=== PATIENT | female | born 2000 | race Caucasian/White ===

== ENCOUNTER 2023-07-09 23:10 | Emergency (ER) | payer MEDICAID ==
[~2023-07-09] VITALS: Ht 157.5 cm; Wt 70.0 kg
[2023-07-09] MEDS: HYDROcodone-ACET 10/325MG TAB PO ONE (23:48)
[2023-07-10] MEDS: D5W/SOD CHL 0.45% 1,000 ML IV ONE (03:55)
[2023-07-10 04:06] LABS: Basophils # (auto) 0 10 ^3/uL (0-0.2); Basophils % (auto) 0.1 % (0.0-2.0); Eosinophils # (auto) 0 10 ^3/uL (0-0.8); Eosinophils % (auto) 0.2 % (0.0-7.0); Hematocrit 42.5 % (36.0-46.0); Hemoglobin 14.1 g/dL (12.2-16.2); Lymphocytes # (auto) 1.3 10 ^3/uL (0.4-5.4); Lymphocytes % (auto) 17.7 % (10.0-50.0); Mean Corpuscular Hemoglobin 30.3 pg (28.0-32.0); Mean Corpuscular Hgb Conc. 33.3 g/dL (32.0-36.0); Monocytes # (auto) 0.3 10 ^3/uL (0-1.3); Monocytes % (auto) 4.2 % (0.0-12.0); Neutrophils # (auto) 5.5 10 ^3/uL (1.6-8.6); Neutrophils % (auto) 77.8 % (37.0-80.0); Nucleated Red Blood Cells % 0.1 %; Red Blood Cells 4.68 10^6/uL (4.0-5.20); Red Cell Distribution Width 12.3 % (11.8-14.3); White Blood Cell 7.1 10^3/uL (4.4-10.8)
[2023-07-10 04:19] LABS: Chloride 109 mmol/L (98-107); Sodium 141 mmol/L (136-145)
[2023-07-10 04:20] LABS: Anion Gap 10 (5-15); Carbon Dioxide 22 mmol/L (20-30)
[2023-07-10 04:21] LABS: Calcium 8.5 mg/dL (8.7-10.4)
[2023-07-10 04:26] LABS: Glucose 107 mg/dL (74-106)
[2023-07-10 04:32] LABS: Partial Thromboplastin Time 27.2 SEC (24.5-34.5); Prothrombin Time 10.6 sec (9.3-11.8)
[2023-07-10 04:42] LABS: BUN/Creatinine Ratio 8.1 (10.0-20.0); Blood Urea Nitrogen < 5 mg/dL (9-23)
[2023-07-10] MEDS: MORPHINE SULFATE 4 MG/ML SYR/VIAL IV ONE ×2 (05:33→05:39)
[2023-07-10] MEDS: ONDANSETRON HCL 4 MG/2 ML VIAL IV ONE ×2 (05:34→05:39)
[2023-07-10] MEDS: KETAMINE 50mg/ML 10ml Vial (500mg/10ml) IV ONE (06:26)
[2023-07-10] MEDS: MIDAZOLAM HCL 2MG/2ML 2ml VIAL (1mg/ml) IV ONE (06:26)
[2023-07-10] MEDS ORDERED: IBUP-1456 PO (06:52)
[2023-07-10 06:57] VITALS: PULSE 64; RESP 16; O2SAT 100
[2023-07-10 07:47] VITALS: BP 123/84; TEMP 98
[2023-07-10 07:51] VITALS: PULSE 80; RESP 16; O2SAT 99
[2023-07-13] MEDS ORDERED: PREN-96 OR (15:49)
== END 2023-07-10 08:56 | disposition home or self-care (01) ==
LOC: EDBD 23:10 → ER 23:10
DX: S82.852A Displaced trimalleolar fracture of left lower leg, initial encounter for closed fracture (principal); R94.31 Abnormal electrocardiogram [ECG] [EKG]; Z79.01 Long term (current) use of anticoagulants; W18.00XA Striking against unspecified object with subsequent fall, initial encounter; Y93.89 Activity, other specified; Y92.89 Other specified places as the place of occurrence of the external cause; Y99.8 Other external cause status
CPT/HCPCS: 27816; 36415; 71045; 73600; 73610; 80048; 81025; 85025; 85610; 85730; 93005; 96361; 96374; 96375; 99152; 99285; J2250; J2270; J2405; J7030

== ENCOUNTER 2023-07-14 10:59 | Day surgery (SDC) | payer MEDICAID ==
[~2023-07-14] VITALS: Ht 157.5 cm; Wt 65.8 kg
[~2023-07-14 10:59] MED LIST: IBUP-1456 PO; PREN-96 OR
[2023-07-14] MEDS ORDERED: GLYCOPYRROLATE 0.2 MG/ML 1ML VIAL ONE (11:14)
[2023-07-14] MEDS ORDERED: PROPOFOL 10 MG/ML 20 ML IV ONE (11:14)
[2023-07-14] MEDS ORDERED: KETOROLAC TROMETH 30 MG/ML 1ML VIAL ONE (11:15)
[2023-07-14] MEDS ORDERED: DexAMETHasone SOD PHOS 10MG/1ML VIAL INJ ONE (11:15)
[2023-07-14] MEDS ORDERED: LIDOCAINE 2% (LOCAL ANESTH.) PF 5ml SDV ONE (11:15)
[2023-07-14] MEDS ORDERED: ONDANSETRON HCL 4 MG/2 ML VIAL ONE (11:15)
[2023-07-14] MEDS ORDERED: EPINEPHrine HCL 1 MG/1 ML AMP ONE (11:15)
[2023-07-14] MEDS ORDERED: KETAMINE 50mg/ML 1ml syringe ONE (11:21)
[2023-07-14] MEDS ORDERED: ceFAZolin 1GM/50ML 100 ML IV ONE (11:21)
[2023-07-14] MEDS ORDERED: fentaNYL CITRATE 100 MCG/2 ML VL ONE (11:21)
[2023-07-14] MEDS ORDERED: ROPIVACAINE 0.5% (5MG/ML) 20ML AMPULE IJ ONE (11:26)
[2023-07-14] MEDS: ACETAMINOPHEN IV 1000 MG/100ML (10MG/ML) IV ONE (11:50)
[2023-07-14] MEDS: CELECOXIB 100 MG CAP PO ONE (11:50)
[2023-07-14] MEDS: GABAPENTIN 400 MG CAP PO ONE (11:50)
[2023-07-14 13:09] VITALS: TEMP 97.8; O2SAT 96
[2023-07-14] MEDS ORDERED: HYDROmorphone HCL 2 MG/ML VL/or syr ONE (13:19)
[2023-07-14] MEDS: HYDROmorphone HCL 2 MG/ML VL/or syr IV PRN (13:24)
[2023-07-14] MEDS ORDERED: fentaNYL CITRATE 100 MCG/2 ML VL IV PRN (13:30)
[2023-07-14] MEDS ORDERED: LABETALOL HCL 5 MG/ML 4ML SYRINGE IV PRN (13:30)
[2023-07-14] MEDS ORDERED: hydrALAZINE HCL 20 MG/ML VL IV PRN (13:30)
[2023-07-14] MEDS ORDERED: ePHEDrine SULFATE 50 MG/ML AMP IV PRN (13:30)
[2023-07-14] MEDS ORDERED: NALOXONE HCL 0.4 MG/ML VIAL IV PRN (13:30)
[2023-07-14] MEDS ORDERED: ONDANSETRON HCL 4 MG/2 ML VIAL IV PRN (13:30)
[2023-07-14] MEDS ORDERED: FLUMAZENIL 0.1 MG/ML INJ 10ML MDV IV PRN (13:30)
[2023-07-14] MEDS: oxyCODONE HCL 5MG TAB PO PRN (14:05)
[2023-07-14 14:40] VITALS: BP 117/74; PULSE 63; RESP 12; O2SAT 97
== END 2023-07-14 14:45 | disposition home or self-care (01) ==
LOC: SUR 10:59
PROVIDERS: ATTEND Orthopaedic Surgery
DX: S82.842A Displaced bimalleolar fracture of left lower leg, initial encounter for closed fracture (principal); X58.XXXA Exposure to other specified factors, initial encounter; Y93.89 Activity, other specified; Y92.89 Other specified places as the place of occurrence of the external cause; Y99.8 Other external cause status; F17.210 Nicotine dependence, cigarettes, uncomplicated; F12.90 Cannabis use, unspecified, uncomplicated; Z79.899 Other long term (current) drug therapy; Z86.16 Personal history of COVID-19
CPT/HCPCS: 27814; 73600; C1713; C1769; J0131; J0171; J0690; J1100; J1170; J1885; J2001; J2405; J2704; J2795; J3010; 76000

== ENCOUNTER 2023-11-13 23:01 | Emergency (ER) | payer MEDICAID ==
[~2023-11-13] VITALS: Ht 157.5 cm; Wt 69.2 kg
[2023-11-13 23:41] LABS: Basophils # (auto) 0 10 ^3/uL (0-0.2); Basophils % (auto) 0.4 % (0.0-2.0); Eosinophils # (auto) 0.1 10 ^3/uL (0-0.8); Eosinophils % (auto) 1.3 % (0.0-7.0); Hemoglobin 15.1 g/dL (12.2-16.2); Lymphocytes # (auto) 2.9 10 ^3/uL (0.4-5.4); Lymphocytes % (auto) 31.7 % (10.0-50.0); Mean Corpuscular Hgb Conc. 33.6 g/dL (32.0-36.0); Mean Corpuscular Volume 92.3 fL (80.0-100.0); Monocytes # (auto) 0.7 10 ^3/uL (0-1.3); Monocytes % (auto) 7.5 % (0.0-12.0); Neutrophils # (auto) 5.4 10 ^3/uL (1.6-8.6); Neutrophils % (auto) 59.1 % (37.0-80.0); Platelet Count (auto) 372 10^3/uL (140-450); Red Blood Cells 4.87 10^6/uL (4.0-5.20); Red Cell Distribution Width 12.9 % (11.8-14.3); White Blood Cell 9.1 10^3/uL (4.4-10.8)
[2023-11-13 23:47] LABS: Alanine Aminotransferase 30 U/L (7-40); Alkaline Phosphatase 122 U/L (46-116); Anion Gap 7 (5-15); Aspartate Aminotransferase 22 U/L (13-40); BUN/Creatinine Ratio 11.7 (10.0-20.0); Bilirubin, Total 0.3 mg/dL (0.2-1.0); Blood Urea Nitrogen 11 mg/dL (9-23); Carbon Dioxide 24 mmol/L (20-30); Chloride 106 mmol/L (98-107); Glucose 97 mg/dL (74-106); Potassium 3.7 mmol/L (3.5-5.1); Sodium 137 mmol/L (136-145); Total Protein 6.7 g/dL (5.7-8.2)
[2023-11-13 23:58] LABS: Urine Bacteria None Seen /hpf (None Seen)
[2023-11-14 00:15] LABS: Urine Blood 2+ /uL (Negative); Urine Clarity Clear (Clear); Urine Color Colorless (Yellow); Urine Protein, UAD Negative (Negative); Urine Specific Gravity 1.011 (1.001-1.035); Urine Urobilinogen Normal (Negative); Urine WBC <1 /hpf (0 - 5)
[2023-11-14 00:55] VITALS: TEMP 98
[2023-11-14 00:56] VITALS: O2SAT 99
[2023-11-14] MEDS: ONDANSETRON HCL 4 MG/2 ML VIAL IV ONE (01:16)
[2023-11-14 01:17] VITALS: BP 121/85; PULSE 78; RESP 18
[2023-11-14] MEDS: MORPHINE SULFATE INJ 2 MG/ml SYRG IV ONE (01:17)
== END 2023-11-14 02:14 | disposition home or self-care (01) ==
LOC: ER 23:01
DX: N93.9 Abnormal uterine and vaginal bleeding, unspecified (principal); R10.2 Pelvic and perineal pain; R06.02 Shortness of breath; R11.0 Nausea; R07.89 Other chest pain; Z98.890 Other specified postprocedural states; Z79.1 Long term (current) use of non-steroidal anti-inflammatories (NSAID); Z79.899 Other long term (current) drug therapy
CPT/HCPCS: 36415; 71045; 74176; 76856; 80053; 81001; 81025; 83690; 84484; 84702; 85025; 93005; 96374; 96375; 99285; J2270; J2405

== ENCOUNTER 2023-11-14 04:14 | Emergency (ER) | payer MEDICAID ==
[~2023-11-14] VITALS: Ht 157.5 cm; Wt 59.1 kg
[2023-11-14 04:18] VITALS: BP 124/57; RESP 20; O2SAT 99
[2023-11-14 06:08] LABS: Basophils # (auto) 0 10 ^3/uL (0-0.2); Basophils % (auto) 0.2 % (0.0-2.0); Eosinophils # (auto) 0.1 10 ^3/uL (0-0.8); Eosinophils % (auto) 1.5 % (0.0-7.0); Hematocrit 43.7 % (36.0-46.0); Hemoglobin 14.9 g/dL (12.2-16.2); Lymphocytes # (auto) 3.4 10 ^3/uL (0.4-5.4); Mean Corpuscular Hemoglobin 31.6 pg (28.0-32.0); Mean Corpuscular Hgb Conc. 34.2 g/dL (32.0-36.0); Mean Corpuscular Volume 92.6 fL (80.0-100.0); Monocytes # (auto) 0.6 10 ^3/uL (0-1.3); Monocytes % (auto) 5.7 % (0.0-12.0); Neutrophils # (auto) 5.6 10 ^3/uL (1.6-8.6); Neutrophils % (auto) 57.6 % (37.0-80.0); Nucleated Red Blood Cells % 0.1 %; Platelet Count (auto) 352 10^3/uL (140-450); Red Blood Cells 4.72 10^6/uL (4.0-5.20); Red Cell Distribution Width 12.9 % (11.8-14.3); White Blood Cell 9.7 10^3/uL (4.4-10.8)
[2023-11-14 06:20] LABS: INR 0.94 (0.9-1.15); Partial Thromboplastin Time 26.9 SEC (24.5-34.5)
[2023-11-14 06:27] LABS: Alanine Aminotransferase 35 U/L (7-40); Albumin 4.1 g/dL (3.2-4.8); Alkaline Phosphatase 124 U/L (46-116); Anion Gap 8 (5-15); Aspartate Aminotransferase 21 U/L (13-40); BUN/Creatinine Ratio 15.8 (10.0-20.0); Bilirubin, Total 0.3 mg/dL (0.2-1.0); Blood Urea Nitrogen 12 mg/dL (9-23); Calcium 9.1 mg/dL (8.7-10.4); Carbon Dioxide 26 mmol/L (20-30); Chloride 105 mmol/L (98-107); Glucose 96 mg/dL (74-106); Magnesium 1.9 mg/dL (1.6-2.6); Potassium 3.3 mmol/L (3.5-5.1); Sodium 139 mmol/L (136-145); Total Protein 6.9 g/dL (5.7-8.2)
[2023-11-14 08:16] VITALS: PULSE 60
== END 2023-11-14 09:08 | disposition left against medical advice (07) ==
LOC: ER 04:14 → EDBD 04:14 → ER 09:08
DX: R07.9 Chest pain, unspecified (principal); F41.9 Anxiety disorder, unspecified; E87.6 Hypokalemia; Z79.899 Other long term (current) drug therapy
CPT/HCPCS: 36415; 71045; 80053; 83735; 83880; 84484; 85025; 85610; 85730; 93005